=== PATIENT | male | born 1955 | race African-American/Black ===

== ENCOUNTER → 2016-07-23 | Outpatient (CLI) | payer MEDICAID ==
[~2016-07-23] MED LIST: ALBUTEROL SULFAT3 M3 IH; ALBUTEROL0.83 MG/ML IH; ANTIBIOTIC FOR UTI; ANTIVERT 25MG25 MG PO; ANUCORT HC25 M1 RC; ASPIRIN 81M81 MG/TA2 PO; ASPIRIN E.C. 8181 MG PO; ATARAX50 MG PO; CEFTIN 250250 MG/TAB PO; CEPHALEXIN500 M1 PO; CIPRO500 MG PO; CLARITIN 1010 MG/TAB PO; DILAUDID 2MG TAB2 MG PO; ERY; FLEXERIL 1010 MG/TAB PO; FLEXERIL10 MG PO; FLOMAX; FLOMAX 0.40.4 MG/CAP PO; HYDROCODONE/APAP; INDOCIN50 MG PO; MEDROL 4MG DOSPA4 MG PO; MVI; NAPROSYN500 MG PO; NORCO 325 MG-51 TAB PO; NORCO 325 MG-7.1 TAB; PERCOCET 325 MG1 TA2 PO; PERCOCET 325 MG1 TAB PO; PERCOCET 500 MG1 TAB PO; PERCOCET 650 MG1 TAB PO; PREDNISONE10 MG PO; PREDNISONE20 MG PO; PREVACID 15MG15 M1 PO; PREVACID 30MG30 M1 PO; PREVACID 30MG30 MG PO; PROAIR HFA0.09 MG/AC; PROAIR HFA0.09 MG/AC IH; PROTONIX20 MG PO; PROVENTIL0.09 MG/A1 IH; PULMICORT0.2 MG/AC1 IH; ROXICODONE 55 MG/TAB PO; SUCRALFATE1 GM PO; TUSS PO; VITAMIN B121000 MC2 SL; VITAMIN D1000 IU PO; ZITHROMAX 250M250 MG PO; ZOFRAN 4MG T4 MG/TAB PO; [UNRECOGNIZED DRUG - OTHER]; lidocaine patch TOP
== END ==
LOC: COL.RAD 08:15
DX: M50.121 Cervical disc disorder at C4-C5 level with radiculopathy (principal); M25.78 Osteophyte, vertebrae; M25.511 Pain in right shoulder

== ENCOUNTER 2016-07-25 05:59 | Emergency (ER) | payer MEDICAID ==
[~2016-07-25] VITALS: Ht 175.3 cm; Wt 77.3 kg
[~2016-07-25 05:59] MED LIST changes: -MEDROL 4MG DOSPA4 MG PO; -PREDNISONE20 MG PO; -ZITHROMAX 250M250 MG PO
[2016-07-25 06:02] VITALS: TEMP 99
[2016-07-25 06:46] LABS: BASO % 0.4 % (0.0-2.0); EOS % 0.3 % (0-4.0); GRAN # 7.8 (1.4-6.5); HEMATOCRIT 47.9 % (42.0-52.0); HEMOGLOBIN 16.1 g/dl (13.5-18.0); LYMPH # 1.7 (1.2-3.4); LYMPH % 16.3 % (20.0-51.0); MEAN CELL VOLUME 90 fl (80.0-100.0); MEAN CORPUSCULAR HEMOGLOBIN 30 pg (27.0-31.0); MEAN CORPUSCULAR HGB CONC 34 g/dl (33.0-37.0); MEAN PLATELET VOLUME 9.5 fl (7.4-10.4); MONO % 9.6 % (1.7-9.3); PLATELET COUNT 222 K/mm3 (130-400); RED BLOOD COUNT 5.32 M/mm3 (4.20-5.60); REDCELL DISTRIBUTION WIDTH-CV 12.8 % (11.5-14.5); WHITE BLOOD COUNT 10.7 K/mm3 (4.8-10.8)
[2016-07-25 06:53] LABS: ADJUSTED CALCIUM 9.5 mg/dL (8.4-10.2); ALANINE AMINOTRANSFERASE 142 U/L (21-72); ALBUMIN 4.5 gm/dL (3.5-5.0); ALKALINE PHOSPHATASE 77 U/L (50-136); ANION GAP 12 mmol/L (7-16); BILIRUBIN,TOTAL 0.9 mg/dL (0.0-1.0); BLOOD UREA NITROGEN 13 mg/dL (9-20); CALCIUM 9.9 mg/dL (8.4-10.2); CARBON DIOXIDE 26 mmol/L (22-30); CHLORIDE 102 mmol/L (98-107); CREATININE, serum 1.35 mg/dL (0.66-1.25); GLUCOSE 96 mg/dL (74-106); LIPASE 292 U/L (23-300); POTASSIUM 4.2 mmol/L (3.4-5.0); SODIUM 139 mmol/L (137-145); TOTAL PROTEIN 8.2 gm/dL (6.4-8.2)
[2016-07-25 07:04] LABS: B-TYPE NATRIURETIC PEPTIDE 16 pg/mL (0-125)
[2016-07-25 07:07] LABS: TROPONIN-I < 0.012 ng/mL (0.000-0.034)
[2016-07-25] MEDS ORDERED: MEDROL 4MG DOSPA4 MG PO (08:07)
[2016-07-25] MEDS ORDERED: TUSS PO (09:23)
[2016-07-25] MEDS ORDERED: ALBUTEROL0.83 MG/ML IH (09:28)
[2016-07-25 09:58] VITALS: BP 125/82; PULSE 87
== END 2016-07-25 10:00 | disposition home or self-care (01) ==
LOC: COL.ER 05:59
PROVIDERS: Emergency Medicine
DX: J44.1 Chronic obstructive pulmonary disease with (acute) exacerbation (principal); J45.909 Unspecified asthma, uncomplicated; F17.210 Nicotine dependence, cigarettes, uncomplicated; R07.89 Other chest pain
CPT/HCPCS: J7030; J7512

== ENCOUNTER 2016-07-30 20:24 | Emergency (ER) | payer MEDICAID ==
[~2016-07-30] VITALS: Ht 175.3 cm; Wt 79.5 kg
[~2016-07-30 20:24] MED LIST changes: +MEDROL 4MG DOSPA4 MG PO
[2016-07-30 21:10] LABS: BASO % 0.2 % (0.0-2.0); EOS % 0.4 % (0-4.0); GRAN # 7.6 (1.4-6.5); HEMATOCRIT 42.8 % (42.0-52.0); HEMOGLOBIN 14.4 g/dl (13.5-18.0); LYMPH # 1.8 (1.2-3.4); LYMPH % 17.9 % (20.0-51.0); MEAN CELL VOLUME 89 fl (80.0-100.0); MEAN CORPUSCULAR HEMOGLOBIN 30 pg (27.0-31.0); MEAN CORPUSCULAR HGB CONC 34 g/dl (33.0-37.0); MEAN PLATELET VOLUME 9.1 fl (7.4-10.4); MONO # 0.5 (0.1-0.6); MONO % 5.4 % (1.7-9.3); PLATELET COUNT 161 K/mm3 (130-400); RED BLOOD COUNT 4.79 M/mm3 (4.20-5.60); REDCELL DISTRIBUTION WIDTH-CV 12.3 % (11.5-14.5)
[2016-07-30 21:24] LABS: ADJUSTED CALCIUM 9.1 mg/dL (8.4-10.2); ALANINE AMINOTRANSFERASE 67 U/L (21-72); ALBUMIN 3.9 gm/dL (3.5-5.0); ALKALINE PHOSPHATASE 68 U/L (50-136); ANION GAP 14 mmol/L (7-16); BILIRUBIN,TOTAL 1.2 mg/dL (0.0-1.0); BLOOD UREA NITROGEN 11 mg/dL (9-20); C-REACTIVE PROTEIN 4.4 mg/dL (0.0-0.9); CARBON DIOXIDE 22 mmol/L (22-30); CHLORIDE 99 mmol/L (98-107); CREATININE, serum 1.07 mg/dL (0.66-1.25); GLUCOSE 115 mg/dL (74-106); LIPASE 108 U/L (23-300); POTASSIUM 3.6 mmol/L (3.4-5.0); SODIUM 135 mmol/L (137-145); TOTAL PROTEIN 7.3 gm/dL (6.4-8.2)
[2016-07-30 21:45] LABS: PH 6 (5-8); SQUAMOUS EPITHELIAL None Seen /hpf; URINE APPEARANCE Clear; URINE BACTERIA None Seen /hpf; URINE BILIRUBIN Negative (NEGATIVE); URINE BLOOD 1+ (NEGATIVE); URINE COLOR Yellow; URINE GLUCOSE Negative (NEGATIVE); URINE KETONE Negative (NEGATIVE); URINE RBC 0-2 /hpf; URINE WBC 0-2 /hpf
[2016-07-30 21:49] LABS: TROPONIN-I < 0.012 ng/mL (0.000-0.034)
[2016-07-30] MEDS ORDERED: PREDNISONE20 MG PO (22:44)
[2016-07-30] MEDS ORDERED: NORCO 325 MG-51 TAB PO (22:44)
[2016-07-30] MEDS ORDERED: ZITHROMAX 250M250 MG PO (22:44)
[2016-07-30] MEDS ORDERED: ZOFRAN 4MG T4 MG/TAB PO (22:44)
[2016-07-30 22:58] VITALS: BP 122/78; PULSE 90; TEMP 98.9
== END 2016-07-30 23:01 | disposition home or self-care (01) ==
LOC: COL.ER 20:24
PROVIDERS: Emergency Medicine
DX: J44.0 Chronic obstructive pulmonary disease with (acute) lower respiratory infection (principal); J20.9 Acute bronchitis, unspecified; F17.210 Nicotine dependence, cigarettes, uncomplicated
CPT/HCPCS: J1170; J2405; J7030

== ENCOUNTER 2017-01-18 22:38 | Emergency (ER) | payer MEDICAID ==
[~2017-01-18] VITALS: Ht 175.3 cm; Wt 87.2 kg
[~2017-01-18 22:38] MED LIST changes: +PREDNISONE20 MG PO; +ZITHROMAX 250M250 MG PO
[2017-01-18 22:48] VITALS: TEMP 98.3
[2017-01-18] MEDS ORDERED: PROVENTIL0.09 MG/A1 IH ×2 (22:52→22:54)
[2017-01-18 23:48] LABS: BASO % 0.5 % (0.0-2.0); EOS # 0.1 (0.0-0.7); EOS % 1.3 % (0-4.0); GRAN # 4.3 (1.4-6.5); GRAN % 57.2 % (42.2-75.2); HEMATOCRIT 46.3 % (42.0-52.0); HEMOGLOBIN 15.4 g/dl (13.5-18.0); LYMPH # 2.4 (1.2-3.4); LYMPH % 32.6 % (20.0-51.0); MEAN CELL VOLUME 91 fl (80.0-100.0); MEAN CORPUSCULAR HEMOGLOBIN 30 pg (27.0-31.0); MEAN CORPUSCULAR HGB CONC 33 g/dl (33.0-37.0); MONO # 0.6 (0.1-0.6); MONO % 8.1 % (1.7-9.3); PLATELET COUNT 207 K/mm3 (130-400); RED BLOOD COUNT 5.08 M/mm3 (4.20-5.60); REDCELL DISTRIBUTION WIDTH-CV 13.1 % (11.5-14.5); WHITE BLOOD COUNT 7.5 K/mm3 (4.8-10.8)
[2017-01-18 23:52] LABS: PH 5 (5-8); SQUAMOUS EPITHELIAL 0-2 /hpf; URINE APPEARANCE Clear; URINE BACTERIA None Seen /hpf; URINE BILIRUBIN Negative (NEGATIVE); URINE BLOOD Negative (NEGATIVE); URINE COLOR Yellow; URINE GLUCOSE Negative (NEGATIVE); URINE KETONE Negative (NEGATIVE); URINE RBC 0-2 /hpf; URINE UROBILINOGEN Negative (NEGATIVE); URINE WBC 0-2 /hpf
[2017-01-18 23:53] LABS: PROTHROMBIN TIME 11.1 SECONDS (9.7-12.8)
[2017-01-18 23:56] LABS: PARTIAL THROMBOPLASTIN TIME 33.4 SECONDS (26.0-37.0)
[2017-01-18 23:59] LABS: ADJUSTED CALCIUM 9.3 mg/dL (8.4-10.2); ALANINE AMINOTRANSFERASE 89 U/L (21-72); ALBUMIN 4.3 gm/dL (3.5-5.0); ALKALINE PHOSPHATASE 68 U/L (50-136); ANION GAP 12 mmol/L (7-16); BILIRUBIN,TOTAL 0.8 mg/dL (0.0-1.0); BLOOD UREA NITROGEN 7 mg/dL (9-20); CALCIUM 9.5 mg/dL (8.4-10.2); CARBON DIOXIDE 21 mmol/L (22-30); CHLORIDE 105 mmol/L (98-107); GLUCOSE 86 mg/dL (74-106); LIPASE 182 U/L (23-300); POTASSIUM 3.7 mmol/L (3.4-5.0); SODIUM 138 mmol/L (137-145); TOTAL PROTEIN 7.6 gm/dL (6.4-8.2)
[2017-01-19 00:01] LABS: C-REACTIVE PROTEIN < 0.5 mg/dL (0.0-0.9)
[2017-01-19 00:11] LABS: TROPONIN-I < 0.012 ng/mL (0.000-0.034)
[2017-01-19 03:39] VITALS: BP 116/68; PULSE 76
== END 2017-01-19 03:41 | disposition home or self-care (01) ==
LOC: COL.ER 22:38
PROVIDERS: Emergency Medicine
DX: R10.11 Right upper quadrant pain (principal); R10.31 Right lower quadrant pain; R11.0 Nausea; M54.5 Low back pain; K21.9 Gastro-esophageal reflux disease without esophagitis; J44.9 Chronic obstructive pulmonary disease, unspecified; F17.200 Nicotine dependence, unspecified, uncomplicated
CPT/HCPCS: J1170; J2405; J7030

== ENCOUNTER → 2017-02-10 | Outpatient (CLI) | payer MEDICAID ==
[~2017-02-10] MED LIST changes: +AMBIEN 10MG10 MG PO; +ASPI325T6 PO; +DAZIDOX10 MG PO; +FLONASE NASAL S16 GM NS; +HYZAAR 25 MG-101 TAB PO; +IPRATROPIUM BROM3 M1 IH; +NEURONTIN300 MG/CAP PO; +NORCO 325 MG-7.1 TAB PO; +PROTONIX 40MG T40 MG PO; +RT ADVAIR 128 DISKUS IH; +SPIRIVA RE2.5 MCG/Ac IH; +ULTRAM 50MG TAB50 MG PO
== END ==
LOC: COL.RAD 11:59
DX: R10.11 Right upper quadrant pain (principal)
CPT/HCPCS: A9537

== ENCOUNTER 2017-07-26 22:27 | Emergency (ER) | payer MEDICAID ==
[~2017-07-26] VITALS: Ht 175.3 cm; Wt 77.3 kg
[~2017-07-26 22:27] MED LIST changes: -AMBIEN 10MG10 MG PO; -ASPI325T6 PO; -DAZIDOX10 MG PO; -FLONASE NASAL S16 GM NS; -HYZAAR 25 MG-101 TAB PO; -IPRATROPIUM BROM3 M1 IH; -NEURONTIN300 MG/CAP PO; -NORCO 325 MG-7.1 TAB PO; -PROTONIX 40MG T40 MG PO; -RT ADVAIR 128 DISKUS IH; -SPIRIVA RE2.5 MCG/Ac IH; -ULTRAM 50MG TAB50 MG PO
[2017-07-26 22:30] VITALS: BP 124/75; TEMP 97.7
[2017-07-27 00:41] VITALS: PULSE 78
[2017-07-27] MEDS ORDERED: SPIRIVA RE2.5 MCG/Ac IH (00:42)
[2017-07-27] MEDS ORDERED: LOSARTAN/HCT TAB 100 (00:42)
[2017-07-27] MEDS ORDERED: RT ADVAIR 128 DISKUS IH (00:43)
== END 2017-07-27 00:41 | disposition home or self-care (01) ==
LOC: COL.ER 22:27
DX: S06.0X9A Concussion with loss of consciousness of unspecified duration, initial encounter (principal); S50.01XA Contusion of right elbow, initial encounter; S80.02XA Contusion of left knee, initial encounter; W17.89XA Other fall from one level to another, initial encounter
CPT/HCPCS: J1885

== ENCOUNTER 2017-08-13 10:46 | Inpatient (IN) | payer MEDICAID ==
[~2017-08-13] VITALS: Ht 175.3 cm; Wt 89.0 kg
[~2017-08-13 10:46] MED LIST changes: +HYZAAR 25 MG-101 TAB PO; +RT ADVAIR 128 DISKUS IH; +SPIRIVA RE2.5 MCG/Ac IH
[2017-10-26] VITALS (11 sets, daily range): BP systolic 123–150; BP diastolic 57–96; PULSE 58–89; TEMP 98–98.8
[2017-10-26] MEDS ORDERED: AMBIEN 10MG10 MG PO (02:40)
[2017-10-26] MEDS ORDERED: PROTONIX 40MG T40 MG PO (02:41)
[2017-10-26] MEDS ORDERED: PROAIR HFA0.09 MG/AC IH (05:32)
[2017-10-26] MEDS ORDERED: FLONASE NASAL S16 GM NS (06:17)
[2017-10-27 01:11] VITALS: BP 130/86; PULSE 60; TEMP 98.9
[2017-10-27 03:57] VITALS: BP 124/72; PULSE 77; TEMP 98.4
[2017-10-27 07:27] VITALS: BP 132/75; PULSE 86; TEMP 98.3
== END 2017-10-27 09:00 | disposition home or self-care (01) | DRG 483 ==
LOC: JCC 09-30 07:30
PROVIDERS: Orthopaedic Surgery
PROC: 0RPJ0JZ Removal of Synthetic Substitute from Right Shoulder Joint, Open Approach (ICD-10-PCS; 2017-10-26)
PROC: 0RRJ00Z Replacement of Right Shoulder Joint with Reverse Ball and Socket Synthetic Substitute, Open Approach (ICD-10-PCS; principal; 2017-10-26 07:30)
DX: T84.89XA Other specified complication of internal orthopedic prosthetic devices, implants and grafts, initial encounter (principal); M19.011 Primary osteoarthritis, right shoulder; C61 Malignant neoplasm of prostate; I10 Essential (primary) hypertension; J45.909 Unspecified asthma, uncomplicated; F17.210 Nicotine dependence, cigarettes, uncomplicated; Z96.611 Presence of right artificial shoulder joint
CPT/HCPCS: A4314; A9284; C1713; C1776; J0360; J0690; J1100; J1170; J1885; J2405; J2704; J2765; J3010; J3370; J7050; J7120

== ENCOUNTER 2018-01-20 11:00 | Outpatient (RCR) | payer MEDICAID ==
[~2018-01-20 11:00] MED LIST changes: +AMBIEN 10MG10 MG PO; +FLONASE NASAL S16 GM NS; +PROTONIX 40MG T40 MG PO
== END 2018-02-02 | disposition home or self-care (01) ==
LOC: MKS.ESL.PT
DX: Z47.1 Aftercare following joint replacement surgery (principal); Z96.611 Presence of right artificial shoulder joint

== ENCOUNTER 2018-02-05 14:29 | Observation (INO) | payer MEDICAID ==
[~2018-02-05] VITALS: Ht 175.3 cm; Wt 84.5 kg
[2018-02-05 15:12] LABS: BASO % 0.4 % (0.0-2.0); EOS # 0.1 (0.0-0.7); EOS % 1.7 % (0-4.0); GRAN # 3.5 (1.4-6.5); GRAN % 45.7 % (42.2-75.2); HEMATOCRIT 46.9 % (42.0-52.0); HEMOGLOBIN 15.5 g/dl (13.5-18.0); LYMPH # 3.2 (1.2-3.4); MEAN CELL VOLUME 92 fl (80.0-100.0); MEAN CORPUSCULAR HEMOGLOBIN 31 pg (27.0-31.0); MEAN CORPUSCULAR HGB CONC 33 g/dl (33.0-37.0); MEAN PLATELET VOLUME 9.2 fl (7.4-10.4); MONO # 0.8 (0.1-0.6); MONO % 10.1 % (1.7-9.3); PLATELET COUNT 222 K/mm3 (130-400); RED BLOOD COUNT 5.09 M/mm3 (4.20-5.60); REDCELL DISTRIBUTION WIDTH-CV 13.6 % (11.5-14.5)
[2018-02-05 15:17] VITALS: BP 99/65; PULSE 71
[2018-02-05 15:17] LABS: ALANINE AMINOTRANSFERASE 94 U/L (21-72); ALBUMIN 4.2 gm/dL (3.5-5.0); ALCOHOL(ethanol),MEDICAL 60 mg/dL; ALKALINE PHOSPHATASE 65 U/L (50-136); ANION GAP 14 mmol/L (7-16); AST,SGOT 95 U/L (15-37); BILIRUBIN,TOTAL 0.8 mg/dL (0.0-1.0); BLOOD UREA NITROGEN 10 mg/dL (9-20); CALCIUM 9.2 mg/dL (8.4-10.2); CARBON DIOXIDE 20 mmol/L (22-30); CHLORIDE 99 mmol/L (98-107); CREATININE, serum 1.34 mg/dL (0.66-1.25); GLUCOSE 75 mg/dL (74-106); MAGNESIUM 1.8 mg/dL (1.6-2.3); POTASSIUM 3.9 mmol/L (3.4-5.0); SODIUM 133 mmol/L (137-145); TOTAL PROTEIN 7.5 gm/dL (6.4-8.2)
[2018-02-05 15:34] LABS: TROPONIN-I < 0.012 ng/mL (0.000-0.034)
[2018-02-05] MEDS ORDERED: NORCO 325 MG-7.1 TAB PO (18:05)
[2018-02-05 19:20] VITALS: BP 129/80; PULSE 78; PULSE 79; TEMP 98.2
[2018-02-05 23:49] VITALS: BP 117/59; PULSE 77; TEMP 97.9
[2018-02-06 04:00] VITALS: BP 150/89; PULSE 20; PULSE 60; TEMP 97.4
[2018-02-06 06:15] VITALS: BP 151/94; PULSE 67
[2018-02-06 06:30] LABS: BASO % 0.2 % (0.0-2.0); EOS # 0.2 (0.0-0.7); EOS % 2.6 % (0-4.0); GRAN # 3.2 (1.4-6.5); GRAN % 55.8 % (42.2-75.2); HEMATOCRIT 44.6 % (42.0-52.0); HEMOGLOBIN 14.7 g/dl (13.5-18.0); LYMPH # 1.8 (1.2-3.4); MEAN CELL VOLUME 93 fl (80.0-100.0); MEAN CORPUSCULAR HEMOGLOBIN 31 pg (27.0-31.0); MEAN CORPUSCULAR HGB CONC 33 g/dl (33.0-37.0); MEAN PLATELET VOLUME 9.8 fl (7.4-10.4); MONO # 0.5 (0.1-0.6); PLATELET COUNT 188 K/mm3 (130-400); RED BLOOD COUNT 4.82 M/mm3 (4.20-5.60); REDCELL DISTRIBUTION WIDTH-CV 13.6 % (11.5-14.5)
[2018-02-06 06:42] LABS: CALCIUM 8.5 mg/dL (8.4-10.2); CHOLESTEROL RISK RATIO 1.9; CREATININE, serum 1.06 mg/dL (0.66-1.25); MAGNESIUM 1.7 mg/dL (1.6-2.3); PHOSPHOROUS 4.1 mg/dL (2.5-4.5); POTASSIUM 4.1 mmol/L (3.4-5.0)
[2018-02-06 07:53] VITALS: BP 144/86; PULSE 70; TEMP 98.6
[2018-02-06] MEDS ORDERED: ASPIRIN 81M81 MG/TA2 PO (11:01)
== END 2018-02-06 11:45 | disposition home or self-care (01) ==
LOC: COL.ER 14:29 → MEDICAL 17:26
PROVIDERS: Emergency Medicine; Hospitalist
DX: R55 Syncope and collapse (principal); J44.9 Chronic obstructive pulmonary disease, unspecified; K21.9 Gastro-esophageal reflux disease without esophagitis; F17.210 Nicotine dependence, cigarettes, uncomplicated; N17.9 Acute kidney failure, unspecified; N40.0 Benign prostatic hyperplasia without lower urinary tract symptoms; F10.20 Alcohol dependence, uncomplicated; G47.00 Insomnia, unspecified; E86.0 Dehydration; R97.20 Elevated prostate specific antigen [PSA]; Z96.611 Presence of right artificial shoulder joint; Z88.3 Allergy status to other anti-infective agents; Z91.013 Allergy to seafood; Z85.46 Personal history of malignant neoplasm of prostate
CPT/HCPCS: G0378; J1644; J7030

== ENCOUNTER 2018-03-12 23:40 | Emergency (ER) | payer MEDICAID ==
[~2018-03-12] VITALS: Ht 175.3 cm; Wt 81.8 kg
[~2018-03-12 23:40] MED LIST changes: +NORCO 325 MG-7.1 TAB PO
[2018-03-12 23:48] VITALS: BP 150/96; TEMP 97.1
[2018-03-13 00:01] LABS: BASO % 0.5 % (0.0-2.0); EOS # 0.2 (0.0-0.7); EOS % 2.8 % (0-4.0); GRAN # 4.2 (1.4-6.5); GRAN % 54.2 % (42.2-75.2); HEMATOCRIT 44.3 % (42.0-52.0); HEMOGLOBIN 14.9 g/dl (13.5-18.0); LYMPH # 2.6 (1.2-3.4); LYMPH % 33.1 % (20.0-51.0); MEAN CELL VOLUME 92 fl (80.0-100.0); MEAN CORPUSCULAR HEMOGLOBIN 31 pg (27.0-31.0); MEAN CORPUSCULAR HGB CONC 34 g/dl (33.0-37.0); MEAN PLATELET VOLUME 9.2 fl (7.4-10.4); MONO # 0.7 (0.1-0.6); PLATELET COUNT 206 K/mm3 (130-400); REDCELL DISTRIBUTION WIDTH-CV 12.9 % (11.5-14.5)
[2018-03-13 00:08] LABS: INR 0.9 (0.8-3.0); PROTHROMBIN TIME 10.7 SECONDS (9.7-12.8)
[2018-03-13 00:12] LABS: ALANINE AMINOTRANSFERASE 65 U/L (21-72); ALBUMIN 3.8 gm/dL (3.5-5.0); ALKALINE PHOSPHATASE 63 U/L (50-136); ANION GAP 6 mmol/L (7-16); AST,SGOT 59 U/L (15-37); BILIRUBIN,TOTAL 0.5 mg/dL (0.0-1.0); BLOOD UREA NITROGEN 8 mg/dL (9-20); CALCIUM 8.7 mg/dL (8.4-10.2); CARBON DIOXIDE 27 mmol/L (22-30); CHLORIDE 104 mmol/L (98-107); CREATINE KINASE 171 U/L (55-170); CREATININE, serum 1.09 mg/dL (0.66-1.25); GLUCOSE 79 mg/dL (74-106); LIPASE 196 U/L (23-300); POTASSIUM 3.8 mmol/L (3.4-5.0); SODIUM 136 mmol/L (137-145)
[2018-03-13 00:33] LABS: TROPONIN-I < 0.012 ng/mL (0.000-0.034)
[2018-03-13] MEDS ORDERED: IPRATROPIUM BROM3 M1 IH (01:32)
[2018-03-13 01:58] VITALS: PULSE 69
== END 2018-03-13 01:59 | disposition home or self-care (01) ==
LOC: COL.ER 23:40
PROVIDERS: Emergency Medicine
DX: R07.81 Pleurodynia (principal); J44.1 Chronic obstructive pulmonary disease with (acute) exacerbation; I10 Essential (primary) hypertension; E78.5 Hyperlipidemia, unspecified; F17.210 Nicotine dependence, cigarettes, uncomplicated; F12.90 Cannabis use, unspecified, uncomplicated; Z85.46 Personal history of malignant neoplasm of prostate; Z98.890 Other specified postprocedural states; Z79.82 Long term (current) use of aspirin; Z79.51 Long term (current) use of inhaled steroids

== ENCOUNTER 2018-03-31 10:30 | Outpatient (RCR) | payer MEDICAID ==
[~2018-03-31 10:30] MED LIST changes: +IPRATROPIUM BROM3 M1 IH
== END 2018-05-04 | disposition home or self-care (01) ==
LOC: MKS.ESL.PT
DX: Z47.1 Aftercare following joint replacement surgery (principal); Z96.611 Presence of right artificial shoulder joint

== ENCOUNTER 2018-05-12 12:03 | Emergency (ER) | payer MEDICAID ==
[~2018-05-12] VITALS: Ht 175.3 cm; Wt 81.8 kg
[2018-05-12 12:10] VITALS: TEMP 97.8
[2018-05-12 12:32] LABS: BASO % 0.7 % (0.0-2.0); EOS # 0.1 (0.0-0.7); EOS % 1.3 % (0-4.0); GRAN # 3.4 (1.4-6.5); GRAN % 55.9 % (42.2-75.2); HEMATOCRIT 48.2 % (42.0-52.0); HEMOGLOBIN 16.1 g/dl (13.5-18.0); LYMPH % 32.4 % (20.0-51.0); MEAN CELL VOLUME 92 fl (80.0-100.0); MEAN CORPUSCULAR HEMOGLOBIN 31 pg (27.0-31.0); MEAN CORPUSCULAR HGB CONC 33 g/dl (33.0-37.0); MEAN PLATELET VOLUME 9.1 fl (7.4-10.4); MONO # 0.6 (0.1-0.6); MONO % 9.4 % (1.7-9.3); PLATELET COUNT 223 K/mm3 (130-400); RED BLOOD COUNT 5.26 M/mm3 (4.20-5.60); REDCELL DISTRIBUTION WIDTH-CV 12.5 % (11.5-14.5)
[2018-05-12 12:39] LABS: PROTHROMBIN TIME 11.2 SECONDS (9.7-12.8)
[2018-05-12 12:42] LABS: PARTIAL THROMBOPLASTIN TIME 35.7 SECONDS (26.0-37.0)
[2018-05-12 12:47] LABS: ALANINE AMINOTRANSFERASE 105 U/L (21-72); ALBUMIN 4.3 gm/dL (3.5-5.0); ALKALINE PHOSPHATASE 68 U/L (50-136); ANION GAP 9 mmol/L (7-16); AST,SGOT 86 U/L (15-37); BILIRUBIN,TOTAL 0.7 mg/dL (0.0-1.0); BLOOD UREA NITROGEN 7 mg/dL (9-20); CALCIUM 9.5 mg/dL (8.4-10.2); CARBON DIOXIDE 24 mmol/L (22-30); CHLORIDE 106 mmol/L (98-107); CREATININE, serum 1.05 mg/dL (0.66-1.25); GLUCOSE 88 mg/dL (74-106); POTASSIUM 4.1 mmol/L (3.4-5.0); SODIUM 138 mmol/L (137-145); TOTAL PROTEIN 7.6 gm/dL (6.4-8.2)
[2018-05-12 13:24] LABS: TROPONIN-I < 0.012 ng/mL (0.000-0.034)
[2018-05-12 14:30] VITALS: BP 150/95; PULSE 72
== END 2018-05-12 14:37 | disposition home or self-care (01) ==
LOC: COL.ER 12:03
PROVIDERS: Family Medicine
DX: R07.89 Other chest pain (principal); J44.9 Chronic obstructive pulmonary disease, unspecified; Z79.82 Long term (current) use of aspirin; Z79.51 Long term (current) use of inhaled steroids
CPT/HCPCS: J1885

== ENCOUNTER 2018-06-20 22:22 | Emergency (ER) | payer MEDICAID ==
[~2018-06-20] VITALS: Ht 175.3 cm; Wt 81.8 kg
[2018-06-20 22:35] VITALS: BP 116/71; TEMP 97.2
[2018-06-20 23:06] LABS: BASO % 0.5 % (0.0-2.0); EOS # 0.2 (0.0-0.7); EOS % 2.6 % (0-4.0); GRAN # 2.9 (1.4-6.5); GRAN % 45.7 % (42.2-75.2); HEMATOCRIT 44.2 % (42.0-52.0); HEMOGLOBIN 14.4 g/dl (13.5-18.0); LYMPH # 2.6 (1.2-3.4); LYMPH % 41.2 % (20.0-51.0); MEAN CELL VOLUME 94 fl (80.0-100.0); MEAN CORPUSCULAR HEMOGLOBIN 31 pg (27.0-31.0); MEAN CORPUSCULAR HGB CONC 33 g/dl (33.0-37.0); MEAN PLATELET VOLUME 8.8 fl (7.4-10.4); MONO # 0.6 (0.1-0.6); MONO % 9.5 % (1.7-9.3); PLATELET COUNT 215 K/mm3 (130-400); RED BLOOD COUNT 4.68 M/mm3 (4.20-5.60)
[2018-06-20 23:18] LABS: CALCIUM 9.2 mg/dL (8.4-10.2); CREATININE, serum 0.94 mg/dL (0.66-1.25); POTASSIUM 4.3 mmol/L (3.4-5.0)
[2018-06-20 23:33] LABS: COLLECTION METHOD CLEAN CATCH
[2018-06-20 23:39] LABS: PH 5 (5-8); SQUAMOUS EPITHELIAL None Seen /hpf; URINE APPEARANCE Clear; URINE BACTERIA None Seen /hpf; URINE BILIRUBIN Negative (NEGATIVE); URINE BLOOD Negative (NEGATIVE); URINE COLOR Yellow; URINE GLUCOSE Negative (NEGATIVE); URINE KETONE Negative (NEGATIVE); URINE LEUKOCYTE ESTERASE Negative (NEGATIVE); URINE NITRATE Negative (NEGATIVE); URINE PROTEIN(semi-quant) Negative (NEGATIVE); URINE RBC 0-2 /hpf; URINE UROBILINOGEN Negative (NEGATIVE)
[2018-06-21 00:04] VITALS: PULSE 72
[2018-06-21] MEDS ORDERED: ULTRAM 50MG TAB50 MG PO (00:08)
== END 2018-06-20 23:52 | disposition home or self-care (01) ==
LOC: COL.ER 22:22
PROVIDERS: Physician Assistant
DX: M54.5 Low back pain (principal); J45.909 Unspecified asthma, uncomplicated; Z98.890 Other specified postprocedural states
CPT/HCPCS: J1885; J2360

== ENCOUNTER → 2018-07-20 | Outpatient (CLI) | payer MEDICAID ==
[~2018-07-20] MED LIST changes: +ULTRAM 50MG TAB50 MG PO
== END ==
LOC: COL.RAD 13:30
DX: M25.552 Pain in left hip (principal)
CPT/HCPCS: J3301; Q9967

== ENCOUNTER → 2018-09-07 | Outpatient (CLI) | payer MEDICAID | LOC: MHCPAIN 10:23 | DX: G89.29 Other chronic pain (principal); M47.817 Spondylosis without myelopathy or radiculopathy, lumbosacral region; M54.16 Radiculopathy, lumbar region; M53.3 Sacrococcygeal disorders, not elsewhere classified; M48.061 Spinal stenosis, lumbar region without neurogenic claudication | CPT/HCPCS: G0463 ==

== ENCOUNTER 2018-09-28 09:15 | Outpatient (RCR) | payer MEDICAID | END 2018-12-20 | disposition home or self-care (01) | LOC: MKS.ESL.PT | DX: M51.36 Other intervertebral disc degeneration, lumbar region (principal); M48.061 Spinal stenosis, lumbar region without neurogenic claudication; M47.817 Spondylosis without myelopathy or radiculopathy, lumbosacral region; M54.42 Lumbago with sciatica, left side; M54.16 Radiculopathy, lumbar region; G89.29 Other chronic pain ==

== ENCOUNTER → 2018-10-20 | Outpatient (CLI) | payer MEDICAID | LOC: COL.RAD 09:05 | DX: M87.052 Idiopathic aseptic necrosis of left femur (principal); M25.452 Effusion, left hip ==

== ENCOUNTER → 2018-11-08 | Outpatient (CLI) | payer MEDICAID | LOC: MHCPAIN 11:20 | DX: G89.29 Other chronic pain (principal); M47.817 Spondylosis without myelopathy or radiculopathy, lumbosacral region; M54.16 Radiculopathy, lumbar region; M53.3 Sacrococcygeal disorders, not elsewhere classified | CPT/HCPCS: G0463 ==

== ENCOUNTER → 2018-11-09 | Outpatient (CLI) | payer MEDICAID | LOC: COL.RAD 08:00 | DX: M13.852 Other specified arthritis, left hip (principal); M87.88 Other osteonecrosis, other site | CPT/HCPCS: J3301; Q9967 ==

== ENCOUNTER → 2018-12-09 | Outpatient (CLI) | payer MEDICAID | LOC: COL.RAD 13:00 | DX: M19.012 Primary osteoarthritis, left shoulder (principal) | CPT/HCPCS: J3301; Q9967 ==

== ENCOUNTER 2018-12-21 15:18 | Inpatient (IN) | payer MEDICAID ==
[~2018-12-21] VITALS: Ht 175.3 cm; Wt 80.6 kg
[2019-02-08] VITALS (11 sets, daily range): BP systolic 112–145; BP diastolic 79–94; PULSE 62–99; TEMP 97.5–98
[2019-02-08] MEDS ORDERED: PROAIR HFA0.09 MG/AC IH (05:44)
[2019-02-08] MEDS ORDERED: DAZIDOX10 MG PO (05:45)
[2019-02-08] MEDS ORDERED: AMBIEN 10MG10 MG PO (05:46)
[2019-02-08] MEDS ORDERED: PROTONIX 40MG T40 MG PO (05:47)
[2019-02-08] MEDS ORDERED: NEURONTIN300 MG/CAP PO (05:47)
--- NOTE | 2019-02-08 06:47 | NUR ---
pt to surgery per bed with Jeffrey simpson. Report called to Francisco Tatum CRNA. IV started to right wrist 20 p. Pre-op meds given as ordered.
--- NOTE | 2019-02-08 12:04 | NUR ---
PT TO ROOM 332 PER BED WITH REPORT FROM MARILEE GRAYSON PACU @0924. PT IS DROWSEY BUT AROUSEABLE. LEFT HIP CDI WITH AQUACEL OVER INCISION. TEDS AND SCDS BILATERALLY. LUNGS COARSE THROUGHOUT HAD PT COUGH AND ABLE TO CLEAR. BOWEL SOUNDS PRESENT PEDAL PULSES PALPABLE. IV TO PUMP TO RIGHT HAND. ICE WATER AND JELLO PROVIDED PER PT REQUEST. FAMILY CONTACTED BY PHONE AND THEY WILL RETURN SOON.
--- NOTE | 2019-02-08 12:15 | NUR ---
PATIENT SLEEPING AT THIS TIME. APPEARS TO HAVE NO DISTRESS.
--- NOTE | 2019-02-08 12:54 | NUR ---
First visit from the oceanology teacher. Drying Tunnel Operator saw family and told them about services. No other needs right now.
--- NOTE | 2019-02-08 13:29 | NUR ---
PT RESTING IN BED FAMILY AT BEDSIDE.
--- NOTE | 2019-02-08 13:56 | NUR ---
PT MAINTAINING O2 SATS ON 2 L O2 PNC.
--- NOTE | 2019-02-08 14:34 | NUR ---
boat worker and nurse supervisor case loading, Tiny, met with patient and spouse to address insurance coverage and discharge plan. Patient was notified that his insurance has authorized outpatient with discharge on 02/09/19 if no medical complications. Patient and spouse verbalize understanding and state patient will discharge home with spouse. Patient has home oxygen that he uses at night. Patient has a four wheeled walker with a seat. Worker provided information on toilet riser and tub bench and advised that therapy will discuss medical equipment that might be recommended, after their evaluation on 02/09/19.
--- NOTE | 2019-02-09 02:02 | NUR ---
Patient resting well tonight. Continues to state left leg is numb, so patient was not ambulated tonight. States his thigh is starting to become painful around 1930. Pain medication given. Effective. Patient called and stated he was short of breath. Respiratory therapy called and administered his inhaler. Patient stated he was doing much better. Patient noted to be sleeping well so far tonight. Will continue to monitor.
[2019-02-09 04:30] VITALS: BP 138/80; PULSE 63; TEMP 97.6
[2019-02-09 06:48] LABS: HEMATOCRIT 41.8 % (42.0-52.0); HEMOGLOBIN 13.2 g/dl (13.5-18.0)
[2019-02-09] MEDS ORDERED: NORCO 325 MG-7.1 TAB PO (07:21)
[2019-02-09] MEDS ORDERED: ASPI325T6 PO (07:21)
[2019-02-09 08:12] VITALS: BP 130/74; PULSE 83; TEMP 98.3
--- NOTE | 2019-02-09 10:00 | NUR ---
PT UP AND OUT TO FIELDS WITH THERAPY AMBULTING WITH WALKS AND GAURD ASSIST. RETURNED TO ROOM. OT HAS DONE INITIAL AND WILL RETURN THIS PM FOR 2ND APPT. PAIN WELL CONTROLLED WITH PO MEDS AT THIS TIME.
--- NOTE | 2019-02-09 10:21 | NUR ---
JUSTIN met with the patient and patient's , Christine, to review discharge plan and to discuss PT's recommendation of outpatient PT. The patient reports that he does not have outpatient PT set up yet, but that he would want it at the [facility] on [address]. JUSTIN contacted Daylin at [facility] on [address] and secured the patient an appointment for outpatient PT on Wednesday, 02/15, at 1300. JUSTIN informed the patient, patient's , and RN of the appointment. The patient is to discharge back home today, 02/09, with outpatient PT at [facility] on [address]. No additional needs at this time.
[2019-02-09 11:45] VITALS: BP 156/94; PULSE 72; TEMP 98.3
--- NOTE | 2019-02-09 12:06 | NUR ---
CLEMONS CATHETER DISCONTINUED PER ORDERS. TIP INTACT PATIENT TOLERATED WELL.
--- NOTE | 2019-02-09 14:34 | NUR ---
patient and family provided discharge instructions. Questions solicited and answered. Dressing change complete. Viola intact. New aquacel placed. pt taken to front in wheel chair.
== END 2019-02-09 14:37 | disposition home or self-care (01) | DRG 470 ==
LOC: JCC 02-08 05:18
PROVIDERS: ADMIT Orthopaedic Surgery
PROC: 0SRB03Z Replacement of Left Hip Joint with Ceramic Synthetic Substitute, Open Approach (ICD-10-PCS; principal; 2019-02-08 07:30)
DX: M16.12 Unilateral primary osteoarthritis, left hip (principal); M87.852 Other osteonecrosis, left femur
CPT/HCPCS: A4314; A9284; C1713; C1776; J0690; J1170; J2250; J2370; J2405; J2704; J3010; J7050; J7120

== ENCOUNTER 2019-01-05 14:47 | Outpatient (RCR) | payer MEDICAID ==
[2019-02-08] MEDS ORDERED: PROAIR HFA0.09 MG/AC IH (05:44)
[2019-02-08] MEDS ORDERED: DAZIDOX10 MG PO (05:45)
[2019-02-08] MEDS ORDERED: AMBIEN 10MG10 MG PO (05:46)
[2019-02-08] MEDS ORDERED: PROTONIX 40MG T40 MG PO (05:47)
[2019-02-08] MEDS ORDERED: NEURONTIN300 MG/CAP PO (05:47)
[2019-02-09] MEDS ORDERED: ASPI325T6 PO (07:21)
[2019-02-09] MEDS ORDERED: NORCO 325 MG-7.1 TAB PO (07:21)
== END 2019-04-05 | disposition home or self-care (01) ==
LOC: WSPT
DX: M16.12 Unilateral primary osteoarthritis, left hip (principal); Z96.642 Presence of left artificial hip joint

== ENCOUNTER → 2019-01-30 | Outpatient (CLI) | payer MEDICAID ==
[2019-01-30 12:52] LABS: HIV 1/2 Antibodies Non-Reactive; HIV-1p24 Antigen Non-Reactive
== END ==
LOC: COL.LAB 11:27
PROVIDERS: Orthopaedic Surgery
DX: Z01.812 Encounter for preprocedural laboratory examination (principal); M17.12 Unilateral primary osteoarthritis, left knee

== ENCOUNTER 2019-02-27 16:11 | Emergency (ER) | payer MEDICAID ==
[~2019-02-27] VITALS: Ht 175.3 cm; Wt 81.8 kg
[~2019-02-27 16:11] MED LIST changes: +ASPI325T6 PO; +DAZIDOX10 MG PO; +NEURONTIN300 MG/CAP PO
[2019-02-27 16:12] VITALS: TEMP 97.5
[2019-02-27 16:24] LABS: BASO % 0.3 % (0.0-2.0); EOS # 0.2 (0.0-0.7); EOS % 2.4 % (0-4.0); GRAN # 4.6 (1.4-6.5); GRAN % 51.9 % (42.2-75.2); HEMATOCRIT 40.6 % (42.0-52.0); HEMOGLOBIN 12.9 g/dl (13.5-18.0); MEAN CELL VOLUME 94 fl (80.0-100.0); MEAN CORPUSCULAR HEMOGLOBIN 30 pg (27.0-31.0); MEAN CORPUSCULAR HGB CONC 32 g/dl (33.0-37.0); MEAN PLATELET VOLUME 8.6 fl (7.4-10.4); MONO % 11.1 % (1.7-9.3); PLATELET COUNT 298 K/mm3 (130-400); RED BLOOD COUNT 4.32 M/mm3 (4.20-5.60); REDCELL DISTRIBUTION WIDTH-CV 14.3 % (11.5-14.5)
[2019-02-27 16:36] LABS: ALBUMIN 3.8 gm/dL (3.5-5.0); BILIRUBIN,TOTAL 0.3 mg/dL (0.0-1.0); C-REACTIVE PROTEIN 1.1 mg/dL (0.0-0.9); CALCIUM 8.7 mg/dL (8.4-10.2); CREATININE, serum 0.94 (0.66-1.25); POTASSIUM 3.9 mmol/L (3.4-5.0)
[2019-02-27 17:20] VITALS: BP 90/73; PULSE 83
== END 2019-02-27 17:21 | disposition home or self-care (01) ==
LOC: COL.ER 16:11
PROVIDERS: Family Medicine
DX: E86.0 Dehydration (principal); R55 Syncope and collapse; F17.210 Nicotine dependence, cigarettes, uncomplicated; Z98.890 Other specified postprocedural states

== ENCOUNTER 2019-03-28 12:45 | Outpatient (RCR) | payer MEDICAID | END 2019-04-13 08:54 | disposition home or self-care (01) | LOC: WSC 12:45 | DX: M16.12 Unilateral primary osteoarthritis, left hip (principal); Z96.642 Presence of left artificial hip joint ==

== ENCOUNTER → 2019-04-17 | Outpatient (CLI) | payer MEDICAID | LOC: COL.RAD 09:18 | DX: M25.512 Pain in left shoulder (principal) | CPT/HCPCS: J3301; Q9967 ==

== ENCOUNTER 2019-06-28 10:15 | Outpatient (RCR) | payer MEDICAID | END 2019-08-24 14:17 | disposition home or self-care (01) | LOC: MKS.ESL.PT 10:15 | DX: Z96.642 Presence of left artificial hip joint (principal) ==

== ENCOUNTER → 2019-11-23 | Outpatient (CLI) | payer MEDICAID | LOC: COL.RAD 10:15 | DX: R10.31 Right lower quadrant pain (principal) | CPT/HCPCS: J3301; Q9967 ==

== ENCOUNTER → 2020-02-26 | Outpatient (CLI) | payer MEDICAID | LOC: COL.RAD 10:30 | DX: M25.551 Pain in right hip (principal) | CPT/HCPCS: J3301; Q9967 ==

== ENCOUNTER → 2020-03-13 | Outpatient (CLI) | payer MEDICAID | LOC: COL.RAD 14:00 | DX: M25.512 Pain in left shoulder (principal) | CPT/HCPCS: J3301; Q9967 ==

== ENCOUNTER 2021-02-07 13:18 | Outpatient (RCR) | payer MEDICAID | END 2021-03-10 14:54 | disposition home or self-care (01) | LOC: MKS.ESL.PT 13:18 | DX: M19.012 Primary osteoarthritis, left shoulder (principal) ==

== ENCOUNTER 2021-02-13 05:34 | Day surgery (SDC) | payer MEDICAID ==
[~2021-02-13] VITALS: Ht 175.3 cm; Wt 80.3 kg
--- NOTE | 2021-02-13 05:40 | NUR ---
Patient admitted to room 8 accompanied by friend. Patient is alert and oriented and voices understanding of surgery and consent signed. UDS collected and blood drawn for blood alcohol.
[2021-02-13 06:12] VITALS: BP 129/82; PULSE 79; TEMP 97.9
[2021-02-13 06:26] LABS: TRICYCLIC ANTIDEPRESS URINE NEGATIVE
--- NOTE | 2021-02-13 06:34 | NUR ---
Urine drug screen resulted and called results to Lasha Frank CRNA and Dr. Cali. Case is cancelled for today due to postive drug screen. Dr. Cali will come and talk to the patient.
--- NOTE | 2021-02-13 06:50 | NUR ---
Dr. Cali here and talking with the patient.
--- NOTE | 2021-02-13 07:00 | NUR ---
INT needle discontinued and site is free of redness or swelling. Dressed and dismissed to home. Office will contact the patient with follow up and reschedule date.
== END 2021-02-13 07:00 | disposition home or self-care (01) ==
LOC: SDCO 05:34
PROVIDERS: Registered Nurse
DX: M19.012 Primary osteoarthritis, left shoulder (principal); Z53.8 Procedure and treatment not carried out for other reasons; M81.0 Age-related osteoporosis without current pathological fracture; M19.90 Unspecified osteoarthritis, unspecified site; M06.9 Rheumatoid arthritis, unspecified; J44.9 Chronic obstructive pulmonary disease, unspecified; I10 Essential (primary) hypertension; F17.210 Nicotine dependence, cigarettes, uncomplicated; Z20.822 Contact with and (suspected) exposure to COVID-19; Z85.46 Personal history of malignant neoplasm of prostate; Z79.899 Other long term (current) drug therapy; Z80.9 Family history of malignant neoplasm, unspecified; Z83.3 Family history of diabetes mellitus

== ENCOUNTER 2023-06-08 19:15 | Emergency (ER) | payer MEDICAID ==
[~2023-06-08] VITALS: Ht 175.3 cm; Wt 81.8 kg
[2023-06-08 19:18] VITALS: BP 144/93; TEMP 98.6
[2023-06-08 20:54] VITALS: PULSE 78
== END 2023-06-08 20:55 | disposition home or self-care (01) ==
LOC: COL.ER 19:15
DX: J06.9 Acute upper respiratory infection, unspecified (principal); F17.210 Nicotine dependence, cigarettes, uncomplicated

== ENCOUNTER → 2023-08-10 | Outpatient (CLI) | payer MEDICARE, MEDICAID | LOC: COL.RAD 12:34 | DX: M51.36 Other intervertebral disc degeneration, lumbar region (principal); M47.816 Spondylosis without myelopathy or radiculopathy, lumbar region; M24.28 Disorder of ligament, vertebrae; M48.061 Spinal stenosis, lumbar region without neurogenic claudication; M47.817 Spondylosis without myelopathy or radiculopathy, lumbosacral region ==